=== PATIENT | male | born 1980 | race African-American/Black ===

== ENCOUNTER 2020-06-05 19:25 | Observation (INO) ==
[2020-06-05 20:13] LABS: Basophils % 0.3 % (0.0-0.8); Eosinophils # 0.1 10*3/uL (0.0-0.87); Hematocrit 44.9 VOL% (42.0-52.0); Hemoglobin 13.8 GM/DL (14.0-18.0); Immature Granulocytes % 0.2 %; Immature Granulocytes Absolute 0.01 #; Lymphocytes # 2.5 10*3/uL (1.4-4.0); Lymphocytes % 39.2 % (21.2-54.2); Mean Corpuscular HGB Conc 30.7 GM/DL (32-36); Mean Corpuscular Volume 81.3 FL (87-102); Mean Platelet Volume 10.8 FL (9.6-12.0); Monocytes % 7.4 % (1.7-12.7); Neutrophils % 51.9 % (38.7-73.9); Platelet Count 323 T/CUMM (130-400); Red Blood Count 5.52 MC/CUMM (3.8-5.5); Red Cell Distribution Width 14.6 % (9.3-17.3); White Blood Count 6.3 T/CUMM (4-12)
[2020-06-05 20:27] LABS: Alanine Aminotransferase 49 U/L (16-61); Alkaline Phosphatase 81 U/L (45-117); Aspartate Amino Transferase 25 U/L (0-37); Bilirubin,Total < 0.39 MG/DL (0.2-1.0); Blood Urea Nitrogen 17 MG/DL (7-18); Calcium 9.5 MG/DL (8.5-10.1); Carbon Dioxide 27 MMOL/L (21-32); Estimated Glom Filtration Rate 137 ML/MIN; Glucose 90 MG/DL (74-106); Potassium 3.7 MMOL/L (3.5-5.1); Sodium 136 MMOL/L (136-145); Total Protein 8.2 G/DL (6.4-8.2)
[2020-06-05] MEDS ORDERED: GLUCAGON 1 MG VIAL IM PRN (21:55)
[2020-06-05] MEDS ORDERED: ACETAMINOPHEN 325 MG TABLET PO PRN (21:55)
[2020-06-05] MEDS ORDERED: DEXTROSE 50% 25 GM/50 ML VIAL IV PRN (21:55)
[2020-06-05] MEDS ORDERED: MORPHINE 4 MG/1 ML VIAL IV PRN (23:49)
[2020-06-06 01:16] LABS: Basophils % 0.2 % (0.0-0.8); Eosinophils # 0.1 10*3/uL (0.0-0.87); Eosinophils % 0.9 % (0.00-10.9); Hematocrit 41.2 VOL% (42.0-52.0); Immature Granulocytes % 0.9 %; Immature Granulocytes Absolute 0.05 #; Lymphocytes # 2.5 10*3/uL (1.4-4.0); Lymphocytes % 43.5 % (21.2-54.2); Mean Corpuscular HGB Conc 31.6 GM/DL (32-36); Mean Corpuscular Volume 79.7 FL (87-102); Mean Platelet Volume 11.1 FL (9.6-12.0); Monocytes % 9.4 % (1.7-12.7); Neutrophils % 45.1 % (38.7-73.9); Platelet Count 280 T/CUMM (130-400); Red Blood Count 5.17 MC/CUMM (3.8-5.5); Red Cell Distribution Width 14.7 % (9.3-17.3); White Blood Count 5.8 T/CUMM (4-12)
[2020-06-06 01:41] LABS: Albumin 3.7 G/DL (3.4-5.0); Bilirubin,Total 0.8 MG/DL (0.2-1.0); Calcium 9.2 MG/DL (8.5-10.1); Osmolality,Calculated 272.8 MOS/KG (273-304); Potassium 3.8 MMOL/L (3.5-5.1); Risk Ratio 5.2; Thyroid Stimulating Hormone 4.53 uIU/ml (0.358-3.74); Total Protein 7.6 G/DL (6.4-8.2)
[2020-06-06 02:22] LABS: Eosinophils 3 % (0-10); Lymphocytes 50 % (20-55); Metamyelocytes 2 %; Segmented Neutrophils 43 % (50-85); Total Cells Counted 100
[2020-06-06 02:23] LABS: Anisocytosis Slight; Macrocytosis Slight; Microcytosis Slight
[2020-06-06 02:25] LABS: Platelet Estimate Adequate
[2020-06-06] MEDS ORDERED: DIAZEPAM 5 MG TABLET PO ONE (07:39)
[2020-06-06] MEDS ORDERED: MAGNESIUM SULF RIDER 2 GM in PREMIX 1 EACH IV PRN (07:39)
[2020-06-06] MEDS ORDERED: diphenhydrAMINE CAP 50 MG CAPSULE PO ONE (07:39)
[2020-06-06] MEDS ORDERED: POTASSIUM CHLORIDE RIDER 10 MEQ in PREMIX 1 EACH IV PRN (07:39)
[2020-06-06] MEDS ORDERED: ENOXAPARIN 40 MG/0.4 ML SYRINGE ONE (07:52)
[2020-06-06] MEDS: ASPIRIN 325 MG TABLET PO SCH (09:18)
[2020-06-06] MEDS: ATORVASTATIN 80 MG TABLET PO SCH (09:19)
[2020-06-06] MEDS: ENOXAPARIN 40 MG/0.4 ML SYRINGE SUBCUT SCH (09:19)
[2020-06-06] MEDS ORDERED: SODIUM CHLORIDE 0.45% 1,000 ML IV SCH (10:00)
[2020-06-06 10:03] LABS: Free T4 (Free Thyroxine) 0.83 NG/DL (0.76-1.46)
[2020-06-06] MEDS ORDERED: fentaNYL 100 MCG/2 ML VIAL ONE (13:28)
[2020-06-06] MEDS ORDERED: VERAPAMIL 5 MG/2 ML VIAL ONE (13:28)
[2020-06-06] MEDS ORDERED: LIDOCAINE 1% 20 ML VIAL ONE (13:28)
[2020-06-06] MEDS ORDERED: MIDAZOLAM 2 MG/2 ML VIAL ONE (13:28)
[2020-06-06] MEDS ORDERED: NITROGLYCERIN DRIP 50 MG/250 ML BOTTLE IV ONE (13:28)
[2020-06-06] MEDS ORDERED: CYCLOBENZAPRINE 10 MG TABLET PO PRN (16:42)
[2020-06-07 07:29] LABS: Basophils % 0.2 % (0.0-0.8); Eosinophils # 0.1 10*3/uL (0.0-0.87); Eosinophils % 1.1 % (0.00-10.9); Hemoglobin 13.5 GM/DL (14.0-18.0); Immature Granulocytes % 0.2 %; Immature Granulocytes Absolute 0.01 #; Lymphocytes # 1.8 10*3/uL (1.4-4.0); Lymphocytes % 41.6 % (21.2-54.2); Mean Corpuscular HGB Conc 31.4 GM/DL (32-36); Mean Corpuscular Volume 80.4 FL (87-102); Mean Platelet Volume 11.1 FL (9.6-12.0); Monocytes % 7.6 % (1.7-12.7); Neutrophils % 49.3 % (38.7-73.9); Platelet Count 289 T/CUMM (130-400); Red Blood Count 5.35 MC/CUMM (3.8-5.5); Red Cell Distribution Width 14.4 % (9.3-17.3); White Blood Count 4.4 T/CUMM (4-12)
[2020-06-07 07:46] LABS: Calcium 8.8 MG/DL (8.5-10.1); Osmolality,Calculated 274.7 MOS/KG (273-304); Potassium 4.1 MMOL/L (3.5-5.1)
[2020-06-07 09:02] VITALS: BP 119/71
[2020-06-07] MEDS: ATORVASTATIN 80 MG TABLET PO SCH (10:12)
[2020-06-07] MEDS: ASPIRIN 325 MG TABLET PO SCH (10:13)
[2020-06-07] MEDS: ENOXAPARIN 40 MG/0.4 ML SYRINGE SUBCUT SCH (10:34)
== END 2020-06-07 12:51 | disposition home or self-care (01) ==
LOC: N.ED 19:25 → N.EDINP 19:25 → N.TELES 06-06 00:23
PROVIDERS: ADMIT Internal Medicine; ATTEND Internal Medicine
PROC: CLCCHCL (ICD-10-PCS; 2020-06-06 16:15)